=== PATIENT | male | born 1995 | race Caucasian/White ===

== ENCOUNTER 2021-05-03 17:58 | Inpatient (IN) | payer OTHER ==
[~2021-05-03] VITALS: Ht 175.3 cm; Wt 77.3 kg
[2021-05-03 18:51] LABS: BASOPHILS % (AUTO) 0.6 % (0-1); EOSINOPHILS # (AUTO) 0.2 X10'3 (0-0.9); HEMATOCRIT 48.7 % (42.0-52.0); HEMOGLOBIN 16.8 g/dl (14.0-17.9); LYMPHOCYTES # (AUTO) 2.2 X10'3 (1.1-4.8); LYMPHOCYTES % (AUTO) 36.5 % (21-51); MEAN CORPUSCULAR HEMOGLOBIN 32.6 PG (27.0-31.0); MEAN CORPUSCULAR HGB CONC 34.4 g/dL (33.0-36.5); MEAN CORPUSCULAR VOLUME 94.7 FL (78-98); MEAN PLATELET VOLUME 6.7 FL (7.4-10.4); MONOCYTES # (AUTO) 0.6 X10'3 (0-0.9); MONOCYTES % (AUTO) 10.3 % (2-12); NEUTROPHILS # (AUTO) 2.9 X10'3 (1.8-7.7); NEUTROPHILS % (AUTO) 48.6 % (42-75); PLATELET COUNT 260 X10'3 (140-440); RED BLOOD COUNT 5.14 X10'6 (4.70-6.10); RED CELL DISTRIBUTION WIDTH 12.8 % (11.5-14.5)
[2021-05-03 18:57] LABS: CLARITY,URINE CLEAR (Clear); COLOR,URINE YELLOW (Yellow); GLUCOSE, URINE NEGATIVE (Neg); KETONES,URINE NEGATIVE (Neg); LEUKOCYTE ESTERASE ,URINE NEGATIVE (Neg); NITRITES, URINE NEGATIVE (Neg); OCCULT BLOOD,URINE NEGATIVE (Neg); PROTEIN,URINE NEGATIVE (Neg); UA COLLECTION TYPE CLN CATCH MIDSTREAM
[2021-05-03] MEDS ORDERED: normal saline 1000ml 1,000 ML IV ONE (19:00)
--- NOTE | 2021-05-03 19:06 | NUR ---
pt to CT
[2021-05-03 19:12] LABS: ALANINE AMINOTRANSFERASE 37 U/L (12-78); ALBUMIN/GLOBULIN RATIO 0.9 (1.1-1.5); ALKALINE PHOSPHATASE 94 IU/L (46-116); ANION GAP 11 (8-16); ASPARTATE AMINO TRANSFERASE 24 U/L (10-37); BILIRUBIN,TOTAL 0.6 MG/DL (0.1-1.0); BLOOD UREA NITROGEN 19 MG/DL (7-18); CHLORIDE 104 MMOL/L (99-107); CREATININE 1.27 MG/DL (0.60-1.10); GLUCOSE 119 MG/DL (70-104); LIPASE 123 U/L (73-393); POTASSIUM 3.9 MMOL/L (3.5-5.1); SODIUM 141 MMOL/L (135-145); TOTAL CARBON DIOXIDE 26.2 MMOL/L (24-32); TOTAL PROTEIN 8.6 G/DL (6.4-8.2); eGFR 68 ML/MIN
[2021-05-03 19:32] LABS: C-REACTIVE PROTEIN 2.96 MG/DL (0.0-0.5)
[2021-05-03] MEDS ORDERED: piperacillin/tazo 3.375gm/50ml 50 ML IV ONE (20:30)
[2021-05-03] MEDS ORDERED: NO HOME MEDS (20:59)
[2021-05-03] MEDS ORDERED: temazepam 15mg capsule PO PRN (21:00)
[2021-05-03] MEDS ORDERED: acetaminophen 325mg tablet PO PRN ×2 (21:25)
[2021-05-03] MEDS ORDERED: acetaminophen 650mg rectal suppository RC PRN (21:25)
[2021-05-03] MEDS ORDERED: diphenhydrAMINE 25mg capsule PO PRN (21:25)
[2021-05-03] MEDS ORDERED: HYDROmorphone inj. 0.5 MG/0.5 ML DISP.SYRIN IV PRN (21:25)
[2021-05-03] MEDS ORDERED: mag hydrox/Alum hydrox/simeth 30ml oral suspension PO PRN (21:25)
[2021-05-03] MEDS ORDERED: HYDROcodone/acetaminophen 5mg/325mg tablet PO PRN (21:25)
[2021-05-03] MEDS ORDERED: morphine 2 MG/ML inj. syringe IV PRN ×2 (21:25)
[2021-05-03] MEDS ORDERED: HYDROcodone/acetaminophen 10/325mg tab PO PRN (21:25)
[2021-05-03] MEDS ORDERED: magnesium hydroxide 30ml (MOM) UD suspension PO PRN (21:25)
[2021-05-03] MEDS ORDERED: diphenhydrAMINE 50 mg/ml inj IV PRN (21:25)
[2021-05-03] MEDS ORDERED: bisacodyl 10mg suppository rectal RC PRN (21:25)
[2021-05-03] MEDS ORDERED: ondansetron/PF 4mg/2ml inj IV PRN (21:25)
[2021-05-03] MEDS ORDERED: ondansetron 4mg rapidly disintigrating tab PO PRN (21:25)
[2021-05-03] MEDS ORDERED: dextrose 5%-1/2 normal saline 1,000 ML IV SCH (21:25)
[2021-05-03] MEDS: pantoprazole 40 MG vial IV SCH (22:00)
[2021-05-03] MEDS: diatr meglu/diatrizoate 30ml oral sol.-(3 dose) bottle PO SCH (22:01)
[2021-05-03 22:05] LABS: MAGNESIUM 2.1 MG/DL (1.5-2.4); PHOSPHORUS 3.9 MG/DL (2.3-4.5)
--- NOTE | 2021-05-03 22:09 | NUR ---
pt is resting quietly on gurney, has been evaluated by hospitalist, waiting for bed assignment
[2021-05-04 03:30] LABS: PARTIAL THROMBOPLASTIN TIME 30 SECONDS (22-32)
[2021-05-04 03:31] LABS: ALANINE AMINOTRANSFERASE 38 U/L (12-78); ALBUMIN 3.4 G/DL (3.4-5.0); ALBUMIN/GLOBULIN RATIO 0.9 (1.1-1.5); ALKALINE PHOSPHATASE 84 IU/L (46-116); ANION GAP 8 (8-16); ASPARTATE AMINO TRANSFERASE 23 U/L (10-37); BASOPHILS % (AUTO) 0.7 % (0-1); BILIRUBIN,TOTAL 0.9 MG/DL (0.1-1.0); BLOOD UREA NITROGEN 15 MG/DL (7-18); CALCIUM 8.3 MG/DL (8.5-10.1); CHLORIDE 107 MMOL/L (99-107); CREATININE 1.15 MG/DL (0.60-1.10); EOSINOPHILS # (AUTO) 0.2 X10'3 (0-0.9); EOSINOPHILS % (AUTO) 4.4 % (0-6); GLUCOSE 99 MG/DL (70-104); HEMATOCRIT 45.8 % (42.0-52.0); HEMOGLOBIN 15.6 g/dl (14.0-17.9); LYMPHOCYTES # (AUTO) 2.4 X10'3 (1.1-4.8); LYMPHOCYTES % (AUTO) 46.3 % (21-51); MEAN CORPUSCULAR HEMOGLOBIN 32.3 PG (27.0-31.0); MEAN CORPUSCULAR VOLUME 94.9 FL (78-98); MEAN PLATELET VOLUME 7.2 FL (7.4-10.4); MONOCYTES # (AUTO) 0.6 X10'3 (0-0.9); MONOCYTES % (AUTO) 10.9 % (2-12); NEUTROPHILS % (AUTO) 37.7 % (42-75); PLATELET COUNT 225 X10'3 (140-440); POTASSIUM 3.5 MMOL/L (3.5-5.1); RED BLOOD COUNT 4.82 X10'6 (4.70-6.10); RED CELL DISTRIBUTION WIDTH 12.9 % (11.5-14.5); SODIUM 141 MMOL/L (135-145); TOTAL CARBON DIOXIDE 25.7 MMOL/L (24-32); TOTAL PROTEIN 7.2 G/DL (6.4-8.2); WHITE BLOOD COUNT 5.2 X10'3 (4.5-11.0); eGFR 76 ML/MIN
[2021-05-04] MEDS ORDERED: piperacillin/tazo 3.375gm/50ml 50 ML IV SCH (04:00)
[2021-05-04] MEDS: pantoprazole 40 MG vial IV SCH (07:18)
[2021-05-04] MEDS: diatr meglu/diatrizoate 30ml oral sol.-(3 dose) bottle PO SCH ×2 (07:18→10:42)
--- NOTE | 2021-05-04 07:58 | NUR ---
Patient in room [facility]. I have received report from YANIRA HAZEL FROM ER and had the opportunity to ask questions and assume patient care.
[2021-05-04] MEDS ORDERED: heparin, porcine 5000 units/ml vial SQ SCH (08:00)
[2021-05-04] MEDS ORDERED: docusate sod 100mg capsule PO SCH (08:00)
[2021-05-04 09:00] VITALS: BP 116/61
--- NOTE | 2021-05-04 12:14 | NUR ---
Shant with [facility] given Dr Ceballos Cell phone number Addendum: 05/04/21 at 1226 by Zoya Cardenas RN
--- NOTE | 2021-05-04 12:34 | NUR ---
PAGER ID: [phone] MESSAGE: Zoya-Surg [id number] Re: Jhony PowersA please call re: diet and what Dr Ceballos said about patients stay.
--- NOTE | 2021-05-04 12:50 | NUR ---
Shant called back from [facility] @ [phone] Advised for them to call Dr Ceballos cell phone number given also, Message given to Dr Diaz to call [facility] regarding patients CT
--- NOTE | 2021-05-04 13:22 | NUR ---
Patient very concerned about his bill from this visit. Spoke to Abby with discharge planning and she stated to refer patient to financial counseling.Patient given the phone number for financial counseling and phone number was supplied in patient discharge instructions.
--- NOTE | 2021-05-04 16:45 | NUR ---
PATIENT STABLE AND APPROPRIATE FOR DISCHARGE, IV TAKEN OUT EDUCATION GIVEN, ALL BELONGINGS SENT WITH PATIENT, PATIENT WALKED TO CAR WHERE PATIENT WILL TAKE SELF HOME
== END 2021-05-04 16:50 | disposition home or self-care (01) | DRG 393 ==
LOC: ER 17:58 → ED HOLD 21:22 → SUR 3N 05-04 08:44
PROVIDERS: ADMIT Family Medicine; ATTEND Family Medicine
DX: K35.80 Unspecified acute appendicitis (principal); N17.0 Acute kidney failure with tubular necrosis; Z20.822 Contact with and (suspected) exposure to COVID-19; E86.0 Dehydration; N26.1 Atrophy of kidney (terminal); M25.512 Pain in left shoulder; M25.552 Pain in left hip; M54.5 Low back pain; M79.18 Myalgia, other site; V49.9XXA Car occupant (driver) (passenger) injured in unspecified traffic accident, initial encounter; Y93.I9 Activity, other involving external motion; Y92.488 Other paved roadways as the place of occurrence of the external cause; Y99.8 Other external cause status
CPT/HCPCS: 36415; 74176; 80053; 81003; 83690; 83735; 84100; 85025; 85610; 85730; 86140; 86885; 86900; 86901; 87081; 87635; 96361; 96375; 99285; C9113; G0378; J1644; J2543; J7030; Q9963